=== PATIENT | female | born 1955 | race Caucasian/White ===

== ENCOUNTER 2017-11-20 08:55 | Emergency (ER) | payer OTHER ==
[~2017-11-20 08:55] MED LIST: AMOX1TAB61 PO; ASPI-482 PO; CODE5LIQ PO; CYAN10002 IJ; ESOM20CA PO; FLUT16SP2 NS; GUAI600T79 PO; IBUP800T19 PO; LEVO125T PO; SERT100T8 PO; SIMV20TA PO
[2017-11-20] MEDS ORDERED: IV NORMAL SALINE 1,000ML 1,000 ML IV SCH (09:15)
[2017-11-20] MEDS ORDERED: ONDANSETRON PF 4 MG/2 ML VIAL. IV ONE (09:15)
--- NOTE | 2017-11-20 09:20 | PHYS DOC ---
Past History Past Medical History: Anemia, Anxiety, GERD, High Cholesterol, Hypothyroid Past Surgical History: Hysterectomy, Knee Replacement, Tonsillectomy Smoking: Non-smoker Alcohol Use: Occasionally Drug Use: None Adult General Chief Complaint Chief Complaint: FLANK PAIN HPI HPI Patient is a 62 year old female who presents with complaint of left-sided flank pain. Patient states that her pain started intermittently last night. Patient describes the pain as colicky. Patient states that the pain has become more severe this morning currently rates her pain as 10 out of 10. Patient states that she has had history of kidney stones and last had an episode 3 years ago. Patient states that she does not currently follow with the urologist. Patient has had associated nausea and vomiting with her pain. Patient denies any fever or diarrhea. The patient states that her symptoms feel very similar to her previous episode of ureteral colic. Patient has not taken any medications for her symptoms. Review of Systems Review of Systems Constitutional: Denies fever or chills [] Eyes: Denies change in visual acuity, redness, or eye pain [] HENT: Denies nasal congestion or sore throat [] Respiratory: Denies cough or shortness of breath [] Cardiovascular: Denies chest pain or edema[] GI: Nausea, vomiting, left-sided abdominal and flank pain, denies bloody stools or diarrhea [] : Hematuria[] Musculoskeletal: Denies back pain or joint pain [] Integument: Denies rash or skin lesions [] Neurologic: Denies headache, focal weakness or sensory changes [] All other systems were reviewed and found to be within normal limits, except as documented in this note. Allergies Allergies Allergies Coded Allergies Type Severity Reaction Last Updated Verified acetaminophen Allergy 11/01/13 Yes propoxyphene napsylate Allergy 11/01/13 Yes Physical Exam Physical Exam Constitutional: Alert, afebrile, appears in severe discomfort. [] HENT: Normocephalic, atraumatic, bilateral external ears normal, oropharynx moist, no oral exudates, nose normal. [] Eyes: PERRLA, EOMI, conjunctiva normal, no discharge. [] Neck: Normal range of motion, no tenderness, supple, no stridor. [] Cardiovascular:Heart rate regular rhythm, no murmur [] Lungs & Thorax: Bilateral breath sounds clear to auscultation [] Abdomen: Bowel sounds normal, soft, no tenderness, no masses, no pulsatile masses. [] Skin: Warm, dry, no erythema, no rash. [] Back: No tenderness, no CVA tenderness. [] Extremities: No tenderness, no cyanosis, no clubbing, ROM intact, no edema. [] Neurologic: Alert and oriented X 3, normal motor function, normal sensory function, no focal deficits noted. [] Current Patient Data Vital Signs Vital Signs Date Time Temp Pulse Resp B/P (MAP) Pulse Ox O2 Delivery O2 Flow Rate FiO2 11/20/17 09:05 98.4 62 18 96 Room Air Lab Results Laboratory Tests Test 11/20/17 09:15 White Blood Count 8.3 x10^3/uL Red Blood Count 3.75 x10^6/uL Hemoglobin 13.0 g/dL Hematocrit 37.9 % Mean Corpuscular Volume 101 fL Mean Corpuscular Hemoglobin 35 pg Mean Corpuscular Hemoglobin Concent 34 g/dL Red Cell Distribution Width 14.6 % Platelet Count 532 x10^3/uL Neutrophils (%) (Auto) 19 % Lymphocytes (%) (Auto) 72 % Monocytes (%) (Auto) 8 % Eosinophils (%) (Auto) 1 % Basophils (%) (Auto) 1 % Neutrophils # (Auto) 1.6 x10^3uL Lymphocytes # (Auto) 5.9 x10^3/uL Monocytes # (Auto) 0.7 x10^3/uL Eosinophils # (Auto) 0.1 x10^3/uL Basophils # (Auto) 0.0 x10^3/uL Segmented Neutrophils % 15 % Band Neutrophils % 1 % Lymphocytes % 79 % Atypical Lymphocytes % (Manual) 2 % Monocytes % 3 % Eosinophils % 0 % Basophils % 0 % Platelet Estimate Increased Platelet Clumps, EDTA Present Sodium Level 143 mmol/L Potassium Level 3.8 mmol/L Chloride Level 103 mmol/L Carbon Dioxide Level 30 mmol/L Anion Gap 10 Blood Urea Nitrogen 15 mg/dL Creatinine 1.0 mg/dL Estimated GFR (Cockcroft-Gault) 56.0 BUN/Creatinine Ratio 15 Glucose Level 116 mg/dL Calcium Level 9.2 mg/dL Total Bilirubin 0.4 mg/dL Aspartate Amino Transf (AST/SGOT) 33 U/L Alanine Aminotransferase (ALT/SGPT) 58 U/L Alkaline Phosphatase 116 U/L Total Protein 7.4 g/dL Albumin 3.8 g/dL Albumin/Globulin Ratio 1.1 Lipase 169 U/L Current Medications Medications (Trade) Dose Ordered Sig/Ngoc Route PRN Reason Start Time Stop Time Status Last Admin Dose Admin Morphine Sulfate (Morphine 4mg Syringe) 4 mg PRN Q15MIN PRN IV/SQ PAIN GREATER THAN 3/10 11/20/17 09:15 11/21/17 09:14 11/20/17 10:04 Sodium Chloride 1,000 ml @ 1,000 mls/hr Q1H IV 11/20/17 09:15 11/20/17 10:14 DC 11/20/17 09:26 Ondansetron HCl (Zofran) 4 mg 1X ONCE IV 11/20/17 09:15 11/20/17 09:44 DC 11/20/17 09:27 Ketorolac Tromethamine (Toradol) 30 mg 1X ONCE IV 11/20/17 10:30 11/20/17 10:31 DC 11/20/17 10:06 Ketorolac Tromethamine (Toradol) 30 mg STK-MED ONCE .ROUTE 11/20/17 10:02 11/20/17 10:03 DC EKG EKG Not performed[] Radiology/Procedures Radiology/[place] [address] IMAGING REPORT Signed PATIENT: NAT GARDNER ACCOUNT: [id number] : 1955 LOCATION: ER AGE: 62 SEX: F EXAM STATUS: REG ER ORD. PHYSICIAN: JOSE MIGUEL ELDER MD REASON: left-sided flank pain, history of kidney stones PROCEDURE: CT ABDOMEN PELVIS WO CONTRAST Indication: Left-sided flank pain. History of kidney stones. Technique: CT abdomen and pelvis without IV contrast with multiplanar reformats. Comparison: Previous study from 10/14/2009 Findings: Limited study due to lack of IV contrast. Heart is normal in size. No pericardial or pleural effusion. Clear lung bases. Noncontrast appearance of the liver, spleen, gallbladder, pancreas, adrenals is within normal limits. Punctate nonobstructing stone in the right kidney. Stable mild left hydroureteronephrosis without obstructing radiopaque stone. No perinephric fluid collection. The appearance of the left kidney is relatively stable compared to previous study from 2009. No retroperitoneal, pelvic or inguinal adenopathy. No bowel obstruction. Bladder show no radiopaque stones. Uterus is not visualized likely surgically absent. No solid adnexal lesions. No suspicious bony lesions. Impression: Limited study due to lack of IV contrast. Punctate nonobstructing right renal stone. Stable mild left hydroureteronephrosis when compared to previous CT from 2009. PQRS Compliance Statement: One or more of the following individualized dose reduction techniques were utilized for this examination: 1. Automated exposure control 2. Adjustment of the mA and/or kV according to patient size 3. Use of iterative reconstruction technique DICTATED AND SIGNED BY: RITA LIMON DO DATE: 11/20/17 0956 CC: JOSE MIGUEL ELDER MD; TERRENCE RIVERA MD ~ [] Course & Med Decision Making Course & Med Decision Making Pertinent Labs and Imaging studies reviewed. (See chart for details) Patient was given IV fluids, Zofran, morphine, and Toradol. On reevaluation, patient's pain has improved. The patient's CT scan showed no evidence of an acute ureteral stone. The patient's urinalysis did show signs of hematuria, leukocytosis, and presence of bacteria, and leukoesterase. Patient's symptoms may be in part secondary to urinary tract infection though passing of a recent ureteral stone remains in the differential at this time. The patient will be discharged with prescriptions for Cipro, ibuprofen, Pyridium, and tramadol. Patient was started on tramadol and Pyridium in the emergency department. Patient referred to Dr. Farah of urology for follow-up in the next week if symptoms do not improve. Advised return to emergency department for any worsening symptoms. Patient voiced understanding and in agreement with treatment plan. Dragon Disclaimer Dragon Disclaimer This electronic medical record was generated, in whole or in part, using a voice recognition dictation system. Departure Departure: Impression: Primary Impression: Flank pain Additional Impression: Urinary tract infection Disposition: ADMITTED INPATIENT Condition: IMPROVED Referrals: TERRENCE RIVERA MD (PCP) Patient Instructions: Flank Pain, Urinary Tract Infection Additional Instructions: Follow up with Dr. Keily Farah of [facility] in 1 week for further evaluation if you have persistent symptoms. There is a local office in [place], [place] at [address] [place] [address], [address]. There number is to schedule an appointment. Return to the emergency department for any worsening symptoms. Scripts Tramadol Hcl (TRAMADOL HCL) 50 Mg Tablet 50 MG PO Q6HRS Y for PAIN, #20 TAB Prov: JOSE MIGUEL ELDER MD 11/20/17 Ibuprofen (IBUPROFEN) 600 Mg Tablet 600 MG PO Q6-8HRS Y for PAIN, #30 TAB Prov: JOSE MIGUEL ELDER MD 11/20/17 Ciprofloxacin Hcl (CIPRO) 500 Mg Tablet 1 TAB PO BID, #14 TAB Prov: JOSE MIGUEL ELDER MD 11/20/17 Phenazopyridine Hcl (PYRIDIUM) 200 Mg Tablet 200 MG PO TID for 2 Days, #6 TAB Prov: JOSE MIGUEL ELDER MD 11/20/17 Problem Qualifiers Additional Impression: Urinary tract infection Urinary tract infection type: site unspecified Hematuria presence: with hematuria Qualified Codes: N39.0 - Urinary tract infection, site not specified ; R31.9 - Hematuria, unspecified JOSE MIGUEL ELDER MD Nov 20, 2017 09:20
[2017-11-20] MEDS: MORPHINE SULFATE 4 MG/ML DISP.SYRIN. IV/SQ PRN ×3 (09:27→10:04)
[2017-11-20 09:38] LABS: BASO % 1 % (0-3); EOS # 0.1 x10^3/uL (0.0-0.7); EOS % 1 % (0-3); HEMATOCRIT 37.9 % (36.0-47.0); LYMPH # 5.9 x10^3/uL (1.0-4.8); LYMPH % 72 % (24-48); MEAN CORPUSCULAR HEMOGLOBIN 35 pg (25-35); MEAN CORPUSCULAR HGB CONC 34 g/dL (31-37); MEAN CORPUSCULAR VOLUME 101 fL (79-100); MONO # 0.7 x10^3/uL (0.0-1.1); MONO % 8 % (0-9); NEUT # 1.6 x10^3uL (1.8-7.7); NEUT % 19 % (31-73); PLATELET COUNT 532 x10^3/uL (140-400); RED BLOOD COUNT 3.75 x10^6/uL (3.50-5.40); RED CELL DISTRIBUTION WIDTH 14.6 % (11.5-14.5); WHITE BLOOD COUNT 8.3 x10^3/uL (4.0-11.0)
[2017-11-20 09:58] LABS: ALBUMIN 3.8 g/dL (3.4-5.0); ALBUMIN/GLOBULIN RATIO 1.1 (1.0-1.7); CALCIUM 9.2 mg/dL (8.5-10.1); POTASSIUM 3.8 mmol/L (3.5-5.1); TOTAL BILIRUBIN 0.4 mg/dL (0.2-1.0); TOTAL PROTEIN 7.4 g/dL (6.4-8.2)
[2017-11-20] MEDS ORDERED: KETOROLAC 30 MG/ML VIAL. ONE (10:02)
--- NOTE | 2017-11-20 10:03 | RAD ---
Indication: Left-sided flank pain. History of kidney stones. Technique: CT abdomen and pelvis without IV contrast with multiplanar reformats. Comparison: Previous study from 10/14/2009 Findings: Limited study due to lack of IV contrast. Heart is normal in size. No pericardial or pleural effusion. Clear lung bases. Noncontrast appearance of the liver, spleen, gallbladder, pancreas, adrenals is within normal limits. Punctate nonobstructing stone in the right kidney. Stable mild left hydroureteronephrosis without obstructing radiopaque stone. No perinephric fluid collection. The appearance of the left kidney is relatively stable compared to previous study from 2008. No retroperitoneal, pelvic or inguinal adenopathy. No bowel obstruction. Bladder show no radiopaque stones. Uterus is not visualized likely surgically absent. No solid adnexal lesions. No suspicious bony lesions. Impression: Limited study due to lack of IV contrast. Punctate nonobstructing right renal stone. Stable mild left hydroureteronephrosis when compared to previous CT from 2008. PQRS Compliance Statement: One or more of the following individualized dose reduction techniques were utilized for this examination: 1. Automated exposure control 2. Adjustment of the mA and/or kV according to patient size 3. Use of iterative reconstruction technique
[2017-11-20 10:21] LABS: % SEGS 15 % (35-66)
[2017-11-20 10:22] LABS: % ATYL 2 % (0-0); % BANDS 1 % (0-9); % BASOS 0 % (0-3); % EOS 0 % (0-5); % LYMPHS 79 % (24-48); % MONOS 3 % (0-10); PLATELET CLUMP PRESENT; PLT ESTIMATE INCREASED (ADEQUATE)
[2017-11-20] MEDS ORDERED: KETOROLAC 30 MG/ML VIAL. IV ONE (10:30)
[2017-11-20] MEDS ORDERED: PHEN-318 PO (10:51)
[2017-11-20] MEDS ORDERED: CIPR500T94 PO (10:51)
[2017-11-20] MEDS ORDERED: TRAM50TA PO (10:51)
[2017-11-20] MEDS ORDERED: IBUP600T16 PO (10:51)
[2017-11-20 11:10] LABS: BILIRUBIN,URINE NEG (NEG); CLARITY,URINE HAZY; COLOR,URINE AMBER; GLUCOSE,URINE NEG (NEG); NITRITE,URINE NEG (NEG); RBC,URINE 20-40 /HPF (0-2); UROBILINOGEN,URINE 0.2 mg/dL (0.2 mg/dL)
[2017-11-20 11:11] LABS: AMORPHOUS SEDIMENT,UR PRESENT /HPF; BACTERIA,URINE FEW /HPF (0-FEW); SQUAMOUS EPITHELIAL CELL,UR OCC /LPF
[2017-11-20 11:30] VITALS: BP 132/70
[2017-11-20] MEDS ORDERED: PHENAZOPYRIDINE 200 MG TABLET. PO ONE (12:00)
[2017-11-20] MEDS ORDERED: traMADol 50 MG TABLET PO ONE (12:00)
== END 2017-11-20 11:40 | disposition other institution (70) ==
LOC: ER 08:55
DX: N39.0 Urinary tract infection, site not specified (principal); R31.9 Hematuria, unspecified; E03.9 Hypothyroidism, unspecified; E78.00 Pure hypercholesterolemia, unspecified; K21.9 Gastro-esophageal reflux disease without esophagitis; F41.9 Anxiety disorder, unspecified; Z87.442 Personal history of urinary calculi; Z88.6 Allergy status to analgesic agent; Z88.8 Allergy status to other drugs, medicaments and biological substances
CPT/HCPCS: 36415; 74176; 80053; 81001; 83690; 85007; 85025; 87086; 96361; 96374; 96375; 99285; J1885; J2270; J2405; J7030

== ENCOUNTER 2018-08-07 21:51 | Emergency (ER) | payer OTHER ==
[~2018-08-07] VITALS: Ht 170.2 cm; Wt 93.0 kg
[~2018-08-07 21:51] MED LIST changes: +CIPR500T94 PO; +IBUP600T16 PO; +PHEN-318 PO; +TRAM50TA PO
[2018-08-07 21:59] VITALS: BP 137/60
[2018-08-07] MEDS ORDERED: CEPHALEXIN 250 MG CAPSULE PO ONE (22:15)
[2018-08-07] MEDS ORDERED: CEPH-264 PO (22:20)
--- NOTE | 2018-08-07 22:21 | PHYS DOC ---
Past History Past Medical History: Anemia, Anxiety, GERD, High Cholesterol, Hypothyroid, Kidney Stones, Other Past Surgical History: Hysterectomy, Knee Replacement, Tonsillectomy Smoking: Non-smoker Alcohol Use: None Drug Use: None Adult General Chief Complaint Chief Complaint: INSECT BITE HPI HPI Patient is a 62 year old female who presents with complaint of redness and swelling to the right elbow. Patient states that she first noticed itching to the right elbow 2 days ago. Patient states that over the last 24 hours she has had increasing swelling, redness, and pain to her right elbow. Patient also has noticed increased warmth from the area. Patient was concerned that she may have a spider bite and came to the emergency department for evaluation. Patient has not been taking medications for symptoms. Denies loss of range of motion in the right elbow, fever, or lymphangitic streaking. Patient is not sure what type of insect may have caused the initial bite to occur. Review of Systems Review of Systems Constitutional: Denies fever or chills [] Eyes: Denies change in visual acuity, redness, or eye pain [] HENT: Denies nasal congestion or sore throat [] Respiratory: Denies cough or shortness of breath [] Cardiovascular: Denies chest pain or edema[] GI: Denies abdominal pain, nausea, vomiting, bloody stools or diarrhea [] : Denies dysuria or hematuria [] Musculoskeletal: Redness and swelling to right elbow[] Integument: Denies rash or skin lesions [] Neurologic: Denies headache, focal weakness or sensory changes [] All other systems were reviewed and found to be within normal limits, except as documented in this note. Allergies Allergies Allergies Coded Allergies Type Severity Reaction Last Updated Verified acetaminophen Allergy 11/01/13 Yes propoxyphene napsylate Allergy 11/01/13 Yes Physical Exam Physical Exam Constitutional: Well developed, well nourished, no acute distress, non-toxic appearance. [] HENT: Normocephalic, atraumatic, bilateral external ears normal, oropharynx moist, no oral exudates, nose normal. [] Eyes: PERRLA, EOMI, conjunctiva normal, no discharge. [] Neck: Normal range of motion, no tenderness, supple, no stridor. [] Cardiovascular:Heart rate regular rhythm, no murmur [] Lungs & Thorax: Bilateral breath sounds clear to auscultation [] Abdomen: Bowel sounds normal, soft, no tenderness, no masses, no pulsatile masses. [] Skin: Warm, dry, erythema over right elbow has further characterized in extremities exam. [] Back: No tenderness, no CVA tenderness. [] Extremities: Warmth, erythema, induration, and tenderness palpation overlying right olecranon in the vicinity of olecranon bursa, no fluctuance, no lymphangitic streaking, no cyanosis, no clubbing, ROM intact, no edema. [] Neurologic: Alert and oriented X 3, normal motor function, normal sensory function, no focal deficits noted. [] Current Patient Data Vital Signs Vital Signs Date Time Temp Pulse Resp B/P (MAP) Pulse Ox O2 Delivery O2 Flow Rate FiO2 08/07/18 21:59 98.6 66 18 96 Room Air Lab Results Not performed EKG EKG Not performed[] Radiology/Procedures Radiology/Procedures Not performed[] Course & Med Decision Making Course & Med Decision Making Pertinent Labs and Imaging studies reviewed. (See chart for details) The patient's clinical exam appears consistent with early cellulitis of the right elbow that does not appear to be intra-articular at this time. Patient started on oral Keflex. Will continue on seven-day course of Keflex for outpatient treatment. Advised follow-up with primary doctor in the next 3 days for reevaluation and return to emergency department for any worsening symptoms. Patient was understanding and in agreement with treatment plan. Dragon Disclaimer Dragon Disclaimer This electronic medical record was generated, in whole or in part, using a voice recognition dictation system. Departure Departure: Impression: Primary Impression: Cellulitis Disposition: 01 HOME, SELF-CARE Condition: STABLE Referrals: PHOENIX MERCEDES (PCP) Patient Instructions: Cellulitis Additional Instructions: Follow-up with your primary doctor in the next 3 days for reevaluation. Return to emergency department for any worsening symptoms. Scripts Cephalexin (KEFLEX) 500 Mg Capsule 1 CAP PO QID, #28 CAP Prov: JOSE MIGUEL ELDER MD 08/07/18 Problem Qualifiers Primary Impression: Cellulitis Site of cellulitis: extremity Site of cellulitis of extremity: upper extremity Laterality: right Qualified Codes: L03.113 - Cellulitis of right upper limb JOSE MIGUEL ELDER MD Aug 07, 2018 22:20
[2018-08-08] MEDS ORDERED: POTA10TA10 PO (17:56)
[2018-08-08] MEDS ORDERED: CALC-157 PO (17:56)
[2018-08-08] MEDS ORDERED: MAGN250T2 PO (17:56)
[2018-08-08] MEDS ORDERED: CHOL2000 PO (17:56)
== END 2018-08-07 22:40 | disposition home or self-care (01) ==
LOC: ER 21:51
DX: L03.113 Cellulitis of right upper limb (principal); F41.9 Anxiety disorder, unspecified; K21.9 Gastro-esophageal reflux disease without esophagitis; E78.00 Pure hypercholesterolemia, unspecified; E03.9 Hypothyroidism, unspecified; Z87.442 Personal history of urinary calculi; Z86.2 Personal history of diseases of the blood and blood-forming organs and certain disorders involving the immune mechanism; Z88.6 Allergy status to analgesic agent; Z88.8 Allergy status to other drugs, medicaments and biological substances
CPT/HCPCS: 99283

== ENCOUNTER 2018-08-08 14:13 | Inpatient (IN) | payer OTHER ==
[~2018-08-08] VITALS: Ht 170.2 cm; Wt 97.3 kg
[~2018-08-08 14:13] MED LIST changes: +CEPH-264 PO
[2018-08-08] MEDS ORDERED: IV NORMAL SALINE 1,000ML 1,000 ML IV ONE (14:45)
--- NOTE | 2018-08-08 14:51 | PHYS DOC ---
Past History Past Medical History: Anemia, Anxiety, GERD, High Cholesterol, Hypothyroid, Kidney Stones, Other Past Surgical History: Hysterectomy, Knee Replacement, Tonsillectomy Smoking: Non-smoker Alcohol Use: None Drug Use: None Adult General Chief Complaint Chief Complaint: INSECT BITE [facility] 62-year-old female presents the emergency department with right upper extremity cellulitis that is failing outpatient therapy. She was started on Keflex and has had 3 doses and her pain and redness has continued to worsen. She was sent from her primary care doctor's office. Review of Systems Review of Systems Eyes: Denies change in visual acuity, redness, or eye pain HENT: Denies nasal congestion or sore throat Respiratory: Denies cough or shortness of breath Cardiovascular: No additional information not addressed in HPI GI: Denies abdominal pain, nausea, vomiting, bloody stools or diarrhea : Denies dysuria or hematuria Neurologic: Denies headache, focal weakness or sensory changes Endocrine: Denies polyuria or polydipsia All other systems were reviewed and found to be within normal limits, except as documented in this note Family History Family History noncontributory Allergies Allergies Allergies Coded Allergies Type Severity Reaction Last Updated Verified acetaminophen Allergy Unknown 08/07/18 Yes propoxyphene napsylate Allergy Unknown 08/07/18 Yes Physical Exam Physical Exam GENERAL: Awake, alert, well appearing, nontoxic HEAD/NECK/EYES: Normocephalic, Neck supple, PERRL ENT Airway patent, mucous membranes moist RESP: Nontachypneic, no respiratory distress, normal breath sounds bilaterally CV: Regular rhythm, normal perfusion ABD/GI: Soft, non-tender, no guarding, no rebound, no palpable pulsatile mass BACK: Inspection NL EXT: Right upper extremity cellulitis from the mid forearm to the mid upper arm with a prominent elbow bursa SKIN: Warm, dry NEURO: Oriented X3, normal speech, no motor deficits, no sensory deficits, CN II - XII intact PSYCH: Cooperative, appropriate affect Current Patient Data Vital Signs reviewed Lab Results Laboratory Tests Test 08/08/18 14:46 White Blood Count 10.9 x10^3/uL Red Blood Count 3.61 x10^6/uL Hemoglobin 12.5 g/dL Hematocrit 36.1 % Mean Corpuscular Volume 100 fL Mean Corpuscular Hemoglobin 35 pg Mean Corpuscular Hemoglobin Concent 35 g/dL Red Cell Distribution Width 14.0 % Platelet Count 421 x10^3/uL Neutrophils (%) (Auto) 49 % Lymphocytes (%) (Auto) 41 % Monocytes (%) (Auto) 9 % Eosinophils (%) (Auto) 0 % Basophils (%) (Auto) 1 % Neutrophils # (Auto) 5.3 x10^3uL Lymphocytes # (Auto) 4.5 x10^3/uL Monocytes # (Auto) 1.0 x10^3/uL Eosinophils # (Auto) 0.0 x10^3/uL Basophils # (Auto) 0.1 x10^3/uL Sodium Level 137 mmol/L Potassium Level 3.7 mmol/L Chloride Level 103 mmol/L Carbon Dioxide Level 28 mmol/L Anion Gap 6 Blood Urea Nitrogen 17 mg/dL Creatinine 0.7 mg/dL Estimated GFR (Cockcroft-Gault) 84.5 BUN/Creatinine Ratio 24 Glucose Level 85 mg/dL Lactic Acid Level 1.1 mmol/L Calcium Level 9.3 mg/dL Total Bilirubin 0.6 mg/dL Aspartate Amino Transf (AST/SGOT) 31 U/L Alanine Aminotransferase (ALT/SGPT) 44 U/L Alkaline Phosphatase 123 U/L Total Protein 7.1 g/dL Albumin 3.6 g/dL Albumin/Globulin Ratio 1.0 Current Medications Medications (Trade) Dose Ordered Sig/Ngoc Route PRN Reason Start Time Stop Time Status Last Admin Dose Admin Sodium Chloride 1,000 ml @ 1,000 mls/hr 1X ONCE IV 08/08/18 14:45 08/08/18 15:45 DC 08/08/18 14:55 Vancomycin HCl 1.5 gm/Sodium Chloride 500 ml @ 250 mls/hr 1X ONCE IV 08/08/18 15:20 08/08/18 17:19 08/08/18 15:45 Ondansetron HCl (Zofran) 4 mg PRN Q4HRS PRN IV NAUSEA/VOMITING 08/08/18 15:45 08/09/18 15:44 Morphine Sulfate (Morphine 2mg Syringe) 2 mg PRN Q2HR PRN IV PAIN 08/08/18 16:00 08/09/18 15:59 EKG EKG [] Radiology/Procedures Radiology/Procedures [] Impressions: Right upper extremity cellulitis Failure of outpatient therapy Plan: Admission. Case d/w Dr. Mccullough who will see the patient on the floor Course & Med Decision Making Course & Med Decision Making Pertinent Labs and Imaging studies reviewed. (See chart for details) [] Dragon Disclaimer Dragon Disclaimer This electronic medical record was generated, in whole or in part, using a voice recognition dictation system. Departure Departure: Referrals: PHOENIX MERCEDES (PCP) MARY KATE MORALEZ DO Aug 08, 2018 14:51
[2018-08-08 15:19] LABS: BASO # 0.1 x10^3/uL (0.0-0.2); BASO % 1 % (0-3); EOS % 0 % (0-3); HEMATOCRIT 36.1 % (36.0-47.0); HEMOGLOBIN 12.5 g/dL (12.0-15.5); LYMPH # 4.5 x10^3/uL (1.0-4.8); LYMPH % 41 % (24-48); MEAN CORPUSCULAR HEMOGLOBIN 35 pg (25-35); MEAN CORPUSCULAR HGB CONC 35 g/dL (31-37); MEAN CORPUSCULAR VOLUME 100 fL (79-100); MONO % 9 % (0-9); NEUT # 5.3 x10^3uL (1.8-7.7); NEUT % 49 % (31-73); PLATELET COUNT 421 x10^3/uL (140-400); RED BLOOD COUNT 3.61 x10^6/uL (3.50-5.40); WHITE BLOOD COUNT 10.9 x10^3/uL (4.0-11.0)
[2018-08-08] MEDS ORDERED: VANCOMYCIN 1.5 GM in IV NORMAL SALINE 500ML 500 ML IV ONE (15:20)
[2018-08-08 15:34] LABS: ALBUMIN 3.6 g/dL (3.4-5.0); CALCIUM 9.3 mg/dL (8.5-10.1); CREATININE 0.7 mg/dL (0.6-1.0); GFR 84.5; POTASSIUM 3.7 mmol/L (3.5-5.1); TOTAL BILIRUBIN 0.6 mg/dL (0.2-1.0); TOTAL PROTEIN 7.1 g/dL (6.4-8.2)
[2018-08-08] MEDS ORDERED: ONDANSETRON PF 4 MG/2 ML VIAL. IV PRN (15:45)
--- NOTE | 2018-08-08 15:53 | RAD ---
Examination: Ultrasound right approximately HISTORY: History of cellulitis, bursitis or abscess COMPARISON: None available Findings/ impression: In the region of the soft tissue of the elbow, there is a complex fluid collection measuring 2.7 x 2.4 x 0.2 cm could be inflamed//infected bursitis or abscess. There is diffuse soft tissue edema identified in the posterior upper arm and posterior forearm region probably cellulitis or soft tissue infection. Electronically signed by: Alex Garcia MD (08/08/2018 3:49 PM) [id number]
[2018-08-08] MEDS ORDERED: MORPHINE SULFATE 2 MG/ML DISP.SYRIN. IV PRN (16:00)
[2018-08-08] MEDS ORDERED: MAGN250T2 PO (17:56)
[2018-08-08] MEDS ORDERED: POTA10TA10 PO (17:56)
[2018-08-08] MEDS ORDERED: CALC-157 PO (17:56)
[2018-08-08] MEDS ORDERED: CHOL2000 PO (17:56)
[2018-08-08 18:06] VITALS: BP 110/60
[2018-08-08] MEDS: VANCOMYCIN PER PHARMACY MC PRN ×2 (18:30→18:40)
[2018-08-08] MEDS: LACTOBACILLUS RHAMNOSUS GG 1 CAPSULE. PO SCH (19:42)
[2018-08-08] MEDS: SIMVASTATIN 10 MG TABLET PO SCH (19:43)
[2018-08-08] MEDS: IBUPROFEN 600 MG TABLET. PO PRN (19:43)
[2018-08-08] MEDS ORDERED: VANCOMYCIN 2 GM in IV NORMAL SALINE 500ML 500 ML IV ONE (20:00)
[2018-08-08 22:55] VITALS: BP 102/56
[2018-08-09] MEDS: VANCOMYCIN 1.5 GM in IV NORMAL SALINE 500ML 500 ML IV SCH ×2 (04:08→16:23)
[2018-08-09 05:06] VITALS: BP 105/68
[2018-08-09] MEDS: IBUPROFEN 600 MG TABLET. PO PRN ×2 (06:25→14:33)
[2018-08-09] MEDS: LEVOTHYROXINE 137 MCG TABLET PO SCH (06:25)
[2018-08-09] MEDS: ASPIRIN ENTERIC COATED 81 MG TABLET.DR. PO SCH (08:24)
[2018-08-09] MEDS: SERTRALINE 100 MG TABLET. PO SCH (08:24)
[2018-08-09] MEDS: CALCIUM CARB/VIT D3 500/200 TABLET PO SCH (08:24)
[2018-08-09] MEDS: CHOLECALCIFEROL (VITAMIN D3) 1,000 UNIT TABLET PO SCH (08:24)
[2018-08-09] MEDS: POTASSIUM CHLORIDE 10 MEQ TABLET.ER. PO SCH ×3 (08:25→16:25)
[2018-08-09] MEDS: MAGNESIUM OXIDE 400 MG TABLET PO SCH (08:25)
[2018-08-09] MEDS: LACTOBACILLUS RHAMNOSUS GG 1 CAPSULE. PO SCH ×2 (08:25→21:05)
[2018-08-09 11:00] VITALS: BP 117/78
--- NOTE | 2018-08-09 14:09 | HP ---
ADMIT DATE: 08/09/2018 HISTORY OF PRESENT ILLNESS: The patient is a 62-year-old female patient, who apparently was seen in the Emergency Room on 08/07/2018, was diagnosed with cellulitis of right elbow and forearm and was treated as an outpatient and discharged back home on Keflex, but the redness and swelling has increased and she was seen by her primary care physician, who recommended that she should come back to the Emergency Room as the oral antibiotic are not effective. She was evaluated yesterday in the Emergency Room and was diagnosed with cellulitis of her right upper extremity with failure of outpatient oral antibiotic. Apparently, they did ultrasound, which showed in the region of the soft tissue of the elbow there is a complex fluid collection measuring 2.7 x 2.4 x 0.2 cm, could be inflamed, infected, bursitis or abscess. There is diffuse soft tissue edema identified in the posterior upper arm and posterior forearm region probably cellulitis or soft tissue infection. She was started on IV vancomycin as per pharmacy recommendation was continued on all her other medications. When I examined her, she does have some discomfort and pain when she thought leans on it, but otherwise is not painful. She denied any chills, rigors, or fever. PAST MEDICAL HISTORY: Significant for hyperlipidemia, hypothyroidism, nephrolithiasis, and osteoarthritis. PAST SURGICAL HISTORY: Significant for partial knee replacement, right knee replacement, total abdominal hysterectomy, bilateral salpingo-oophorectomy, multiple breast biopsies, tonsillectomy, appendectomy, and colonoscopy. She also has wisdom tooth extraction. ALLERGIES: She is allergic to TYLENOL and DARVOCET. MEDICATIONS: She is currently on following medications: She is on simvastatin 20 mg at bedtime, aspirin 81 mg once a day, sertraline 100 mg daily, calcium carbonate with vitamin D3 one tablet daily, magnesium oxide 400 mg once a day, potassium chloride 10 mEq 3 times a day, levothyroxine sodium 137 mcg daily and cholecalciferol for vitamin D3 2000 international units once a day. FAMILY HISTORY: Her father is still alive at age of 87, has bilateral total knee arthroplasty, right hip arthroplasty, permanent pacemaker placement, aortic valve replacement and cataract extraction. Her mother is still alive at the age of 87. She has neuropathy, carpal tunnel syndrome and Dupuytren's contractures. SOCIAL HISTORY: She is , has 1 daughter, who is diabetic and hypothyroid. She does not smoke. Drinks alcohol occasionally. She is a retired teacher. REVIEW OF SYSTEMS: The patient denied any blurring of vision, cataract, glaucoma or macular degeneration. Denied any earache, tinnitus or sensorineural deafness. Denied any nosebleeds, stuffy nose or postnasal drip. Denied any sore throat, sore tongue, toothache, hoarseness of voice or difficulty swallowing. Denied any nausea, vomiting, diarrhea or constipation. Denied any hematemesis, melena or hematochezia. Denied any dysuria, frequency or hematuria. Denied any chest pain, shortness of breath, orthopnea, paroxysmal nocturnal dyspnea. Denied any cough, phlegm or hemoptysis. Denied any chills, rigors or fever. PHYSICAL EXAMINATION: GENERAL: On arrival to the Emergency Room, she looked well and was clearly in no apparent respiratory distress, pale, but no jaundice, cyanosis, or thyromegaly. No jugular venous distention. No limb edema. VITAL SIGNS: Her heart rate was 62. Her blood pressure was 131/71, temperature was 98.7, respiratory rate was 18 and oxygen saturation was 100% on room air. HEAD, EYES, EARS, NOSE AND THROAT: Showed normocephalic, atraumatic. NECK: Supple. HEART: Showed normal first and second heart sounds with no gallop, rub or murmur. CHEST: Clear to auscultation. No crepitation or rhonchi. ABDOMEN: Distended, soft, nontender. No guarding or rigidity. No organomegaly. All hernial orifice intact. Bowel sounds normal. NEUROLOGIC: She is awake, alert, responding appropriately. All cranial nerves intact. EXTREMITIES: She moves extremities without difficulty. She ambulates without assistance or assistive devices. Examination of right elbow compared to the left showed that there is diffuse soft tissue swelling and erythema and also what seems to be right olecranon bursitis, which is tender, red, and was deferred fluctuation. Although, the rest of the elbow on the distal right arm and proximal left forearm is swollen, but no fluctuation. LABORATORY DATA: On admission showed that her serum sodium was 137, potassium 3.7, chloride 103, bicarbonate 28, anion gap of 5, BUN of 17, creatinine 0.7, estimated GFR was 85 mL per minute. Her glucose was 85, lactic acid was 1.1, calcium was 9.3. Total bilirubin, AST, ALT were normal. Alkaline phosphatase was slightly elevated. Total protein was 7.1, albumin was 3.6. Her white cell count was 10,900, hemoglobin 12.5, hematocrit 36, MCV 100, and platelet count of 421,000 with a manual differential showed 49% polymorphs, 41% lymphocytes and 9% monocytes. PLAN: The patient was started on IV vancomycin to be adjusted by the pharmacist. Continue with all her other medications. We will follow her closely and obviously she might require surgical incision of her olecranon bursitis. I am a little bit concerned about the involvement of the right elbow joint and therefore, I will arrange for her to have a CT scan of the right elbow. VIRGILIO MIRZA MD DR: JAYCEE/mak JOB#: [id number] / [id number]
[2018-08-09 14:37] VITALS: BP 142/83
[2018-08-09 19:08] VITALS: BP 120/70
[2018-08-09] MEDS: SIMVASTATIN 10 MG TABLET PO SCH (21:05)
[2018-08-09 22:42] VITALS: BP 111/68
--- NOTE | 2018-08-09 23:59 | PN ---
DATE: 08/09/2018 SUBJECTIVE: The patient is sitting on the edge of the bed comfortably in no apparent distress. She denied any chills, rigors, or fever. She continued to have marked erythema and swelling around her right elbow to the distal right arm and proximal left forearm and there is probably olecranon per cystitis. It is tender to touch, but not painful if she is not tough it or leaning on it. PHYSICAL EXAMINATION: GENERAL: When I examined her, she looked well and was clearly in no apparent respiratory distress. No pallor, jaundice, cyanosis, or thyromegaly. No jugular venous distention. No limb edema. VITAL SIGNS: Her heart rate was 59, blood pressure was 129/68, temperature was 98.7, respiratory rate was 16, and oxygen saturation was 97%. HEAD, EYES, EARS, NOSE AND THROAT: Showed normocephalic, atraumatic. NECK: Supple. HEART: Showed normal first and second heart sounds with no gallop, rub, or murmur. CHEST: Clear to auscultation. No crepitation or rhonchi. ABDOMEN: Distended, soft, nontender. NEUROLOGIC: She is awake, alert, responding appropriately. All cranial nerves intact. She moves extremities without difficulty. Examination of the right upper extremity compared to the left continued to show that she has diffuse erythema and soft tissue swelling and possible olecranon bursitis. LABORATORY DATA: Her ultrasound showed that in the region of the soft tissue of the elbow, there is a complex fluid collection measuring 2.7 x 2.4 x 0.2 cm. It could be inflamed infected bursitis and abscess. There is diffuse soft tissue edema identified in the posterior upper arm and posterior forearm region probably cellulitis or soft tissue infection. PLAN: To continue with IV vancomycin. Continue with pain management in the form of ibuprofen and oxycodone. Continue with all her other medications. Repeat her lab work tomorrow and decide on further management accordingly. The swelling has worsened. We might have to transfer her to [facility] for orthopedic consult as she may require incision and drainage. VIRGILIO MIRZA MD DR: JAYCEE/mak JOB#: [id number] / [id number]
[2018-08-10 03:39] LABS: HEMATOCRIT 30.5 % (36.0-47.0); HEMOGLOBIN 10.5 g/dL (12.0-15.5); RED CELL DISTRIBUTION WIDTH 14.2 % (11.5-14.5); WHITE BLOOD COUNT 7.7 x10^3/uL (4.0-11.0)
[2018-08-10 04:01] LABS: ALBUMIN 2.7 g/dL (3.4-5.0); ALBUMIN/GLOBULIN RATIO 0.9 (1.0-1.7); CALCIUM 8.8 mg/dL (8.5-10.1); CREATININE 0.6 mg/dL (0.6-1.0); POTASSIUM 3.9 mmol/L (3.5-5.1); TOTAL BILIRUBIN 0.4 mg/dL (0.2-1.0); TOTAL PROTEIN 5.7 g/dL (6.4-8.2)
[2018-08-10 04:04] LABS: VANC TR 15.7 mcg/mL (10.0-20.0)
[2018-08-10] MEDS: VANCOMYCIN 1.5 GM in IV NORMAL SALINE 500ML 500 ML IV SCH ×2 (04:16→16:54)
[2018-08-10] MEDS: IBUPROFEN 600 MG TABLET. PO PRN ×3 (04:21→16:53)
[2018-08-10 05:30] VITALS: BP 127/66
[2018-08-10] MEDS: LEVOTHYROXINE 137 MCG TABLET PO SCH (05:56)
[2018-08-10] MEDS: VANCOMYCIN PER PHARMACY MC PRN (07:26)
[2018-08-10] MEDS: ASPIRIN ENTERIC COATED 81 MG TABLET.DR. PO SCH (08:43)
[2018-08-10] MEDS: SERTRALINE 100 MG TABLET. PO SCH (08:43)
[2018-08-10] MEDS: CHOLECALCIFEROL (VITAMIN D3) 1,000 UNIT TABLET PO SCH (08:43)
[2018-08-10] MEDS: MAGNESIUM OXIDE 400 MG TABLET PO SCH (08:43)
[2018-08-10] MEDS: LACTOBACILLUS RHAMNOSUS GG 1 CAPSULE. PO SCH ×2 (08:43→21:02)
[2018-08-10] MEDS: POTASSIUM CHLORIDE 10 MEQ TABLET.ER. PO SCH ×3 (08:44→16:53)
[2018-08-10] MEDS: CALCIUM CARB/VIT D3 500/200 TABLET PO SCH (08:44)
[2018-08-10 11:07] VITALS: BP 115/69
[2018-08-10 15:37] VITALS: BP 111/63
[2018-08-10 15:40] VITALS: BP 111/63
--- NOTE | 2018-08-10 17:56 | PN ---
DATE: 08/10/2018 SUBJECTIVE: The patient is sitting, propped up in bed, in no apparent distress. On questioning her, denied any complaint. She has no fever and there is no pain unless she leans on her right elbow. When I examined her, she looked well and was clearly in no apparent respiratory distress. No pallor, jaundice, cyanosis, or thyromegaly. No jugular venous distension. No lower limb edema. PHYSICAL EXAMINATION: Her heart rate was 86, blood pressure was 115/69, temperature was 98, respiratory rate was 12 and oxygen saturation was 98% on room air. Examination of her right upper extremity showed most of the erythema and soft tissue swelling has largely subsided except around her olecranon bursa. She is still red and tender to touch with some fluctuation. The rest of clinical examination is unremarkable. Her intake over the last 24-hour was 1850, output was 850. LABORATORY DATA: Her lab work this morning showed that her vancomycin trough level was 15.7, which is well within therapeutic range. Her white cell count is down to 7700, hemoglobin 10.5, hematocrit 30, MCV 102, and platelet count of 364,000. Her chemistry showed a serum sodium 144, potassium 3.9, chloride 109, bicarbonate 30, anion gap of 5, BUN 11, creatinine 0.6, and estimated GFR was 101 mL per minute. Her glucose was 93 and calcium was 8.8. Total bilirubin, AST, ALT, and alkaline phosphatase are normal. Her total protein was 5.7 and albumin 2.7. ASSESSMENT: Right upper extremity cellulitis with possible olecranon bursitis. The patient is responding well to antibiotics and all the redness and soft tissue swelling has largely subsided except around the olecranon bursitis. My plan is to continue with IV antibiotics in the form of vancomycin trough level that is within the therapeutic range. Continue with pain management. Repeat her lab work and ultrasound tomorrow and decide on further management accordingly. So far, her blood cultures are negative. VIRGILIO MIRZA MD DR: JAYCEE/mak JOB#: [id number] / [id number]
[2018-08-10] MEDS: SIMVASTATIN 10 MG TABLET PO SCH (21:02)
[2018-08-10] MEDS: oxyCODONE IR 5 MG TABLET PO PRN (21:06)
[2018-08-10 23:18] VITALS: BP 111/68
[2018-08-11] MEDS: VANCOMYCIN 1.5 GM in IV NORMAL SALINE 500ML 500 ML IV SCH ×2 (04:11→16:31)
[2018-08-11 04:25] VITALS: BP 120/73
[2018-08-11] MEDS: LEVOTHYROXINE 137 MCG TABLET PO SCH (06:21)
[2018-08-11 06:45] LABS: HEMATOCRIT 28.6 % (36.0-47.0); HEMOGLOBIN 9.9 g/dL (12.0-15.5); RED BLOOD COUNT 2.84 x10^6/uL (3.50-5.40); RED CELL DISTRIBUTION WIDTH 14.5 % (11.5-14.5); WHITE BLOOD COUNT 5.8 x10^3/uL (4.0-11.0)
[2018-08-11 06:54] LABS: CALCIUM 8.8 mg/dL (8.5-10.1); CREATININE 0.6 mg/dL (0.6-1.0); POTASSIUM 4.4 mmol/L (3.5-5.1)
[2018-08-11] MEDS: CALCIUM CARB/VIT D3 500/200 TABLET PO SCH (08:22)
[2018-08-11] MEDS: SERTRALINE 100 MG TABLET. PO SCH (08:22)
[2018-08-11] MEDS: LACTOBACILLUS RHAMNOSUS GG 1 CAPSULE. PO SCH ×2 (08:22→22:10)
[2018-08-11] MEDS: MAGNESIUM OXIDE 400 MG TABLET PO SCH (08:23)
[2018-08-11] MEDS: CHOLECALCIFEROL (VITAMIN D3) 1,000 UNIT TABLET PO SCH (08:23)
[2018-08-11] MEDS: ASPIRIN ENTERIC COATED 81 MG TABLET.DR. PO SCH (08:23)
[2018-08-11] MEDS: POTASSIUM CHLORIDE 10 MEQ TABLET.ER. PO SCH ×3 (08:23→16:31)
[2018-08-11] MEDS: IBUPROFEN 600 MG TABLET. PO PRN (08:23)
[2018-08-11 10:22] VITALS: BP 108/70
[2018-08-11] MEDS: oxyCODONE IR 5 MG TABLET PO PRN ×2 (10:30→22:11)
[2018-08-11 14:46] VITALS: BP 146/85
[2018-08-11 15:28] LABS: HEMATOCRIT 31.5 % (36.0-47.0); HEMOGLOBIN 11.1 g/dL (12.0-15.5)
[2018-08-11 19:41] VITALS: BP 106/70
[2018-08-11 20:44] LABS: FECAL OB PT NEGATIVE (NEG)
[2018-08-11] MEDS: SIMVASTATIN 10 MG TABLET PO SCH (22:10)
--- NOTE | 2018-08-11 22:25 | PN ---
DATE: 08/11/2018 SUBJECTIVE: The patient is sitting in the edge of the bed, in no apparent respiratory distress; however, she was drenched in sweat. She states that she has this sometimes, although all her vital signs were stable. The redness and swelling of the right upper extremity has largely subsided except around the olecranon bursa. PHYSICAL EXAMINATION: GENERAL: When I examined her, she looked well and was clearly in no apparent respiratory distress. No pallor, jaundice, or cyanosis. No lymphadenopathy, no thyromegaly. No jugular venous distention. No limb edema. VITAL SIGNS: Her heart rate was 83, blood pressure was 108/70, temperature was 98.6, respiratory rate 20, and oxygen saturation was 96%. HEAD, EYES, EARS, NOSE AND THROAT: Normocephalic, atraumatic. NECK: Supple. HEART: Showed normal first and second heart sounds with no gallop, rub, or murmur. CHEST: Clear to auscultation. No crepitation or rhonchi. ABDOMEN: Distended, soft, nontender. No guarding or rigidity. No organomegaly. All hernial orifice intact. Bowel sounds normal. NEUROLOGIC: She was awake, alert, responding appropriately. Cranial nerves intact. She moves extremities without difficulty. She ambulates without assistance or assistive devices. Her intake over the last 24 hours was 1430, output was 1900. LABORATORY DATA: Her lab work this morning showed a white cell count of 5800, hemoglobin 9.9, hematocrit 28.5, MCV 101, and platelet count of 352,000. Her chemistry showed a serum sodium 143, potassium 4.4, chloride 110, bicarbonate 31, anion gap of 2, BUN 9, creatinine was 0.6, estimated GFR was 101, glucose was 81, calcium was 8.8. ASSESSMENT AND PLAN: 1. Right upper extremity cellulitis and olecranon bursitis. 2. Hypothyroidism. 3. Hyperlipidemia. 4. Nephrolithiasis. 5. Osteoarthritis. 6. The patient has drenching sweats with differential diagnosis also including postmenopausal flashing, vasovagal. She has also had blood loss anemia that could be due to ibuprofen, so I discontinued that. We will repeat her H and H this afternoon and do an ultrasound of her right upper extremity. Decide the further management accordingly. VIRGILIO MIRZA MD DR: Bonnie JOB#: [id number] / [id number]
[2018-08-11 22:58] VITALS: BP 138/79
[2018-08-12] MEDS: VANCOMYCIN 1.5 GM in IV NORMAL SALINE 500ML 500 ML IV SCH (04:13)
[2018-08-12] MEDS: oxyCODONE IR 5 MG TABLET PO PRN (04:40)
[2018-08-12 06:03] VITALS: BP 120/74
[2018-08-12 06:25] LABS: BASO % 1 % (0-3); EOS # 0.1 x10^3/uL (0.0-0.7); EOS % 2 % (0-3); HEMATOCRIT 28.1 % (36.0-47.0); HEMOGLOBIN 9.7 g/dL (12.0-15.5); LYMPH # 4.2 x10^3/uL (1.0-4.8); LYMPH % 71 % (24-48); MEAN CORPUSCULAR HEMOGLOBIN 35 pg (25-35); MEAN CORPUSCULAR HGB CONC 35 g/dL (31-37); MEAN CORPUSCULAR VOLUME 102 fL (79-100); MONO # 0.5 x10^3/uL (0.0-1.1); MONO % 8 % (0-9); NEUT # 1.1 x10^3uL (1.8-7.7); NEUT % 19 % (31-73); PLATELET COUNT 367 x10^3/uL (140-400); RED BLOOD COUNT 2.76 x10^6/uL (3.50-5.40); RED CELL DISTRIBUTION WIDTH 14.4 % (11.5-14.5); WHITE BLOOD COUNT 5.9 x10^3/uL (4.0-11.0)
[2018-08-12 06:37] LABS: ALBUMIN 2.5 g/dL (3.4-5.0); ALBUMIN/GLOBULIN RATIO 0.9 (1.0-1.7); CALCIUM 8.6 mg/dL (8.5-10.1); CREATININE 0.7 mg/dL (0.6-1.0); GFR 84.5; POTASSIUM 4.4 mmol/L (3.5-5.1); TOTAL BILIRUBIN 0.3 mg/dL (0.2-1.0); TOTAL PROTEIN 5.4 g/dL (6.4-8.2)
[2018-08-12 06:57] LABS: % BASOS 1 % (0-3); % EOS 2 % (0-5); % LYMPHS 68 % (24-48); % MONOS 7 % (0-10); % SEGS 18 % (35-66); PLT ESTIMATE INCREASED (ADEQUATE)
[2018-08-12 06:58] LABS: PLATELET CLUMP PRESENT
[2018-08-12 06:59] LABS: POLYCHROMASIA PRESENT
[2018-08-12 07:00] LABS: % ATYL 4 % (0-0)
[2018-08-12] MEDS: LEVOTHYROXINE 137 MCG TABLET PO SCH (07:39)
--- NOTE | 2018-08-12 07:55 | RAD ---
Right elbow ultrasound, 08/11/2018: HISTORY: Swelling after bug bite The area of clinical concern in the soft tissues along the anterolateral aspect of the right elbow was scanned. Comparison is made to a study from 08/08/2018. Extensive soft tissue edema seen on the previous study has regressed. Along the anterolateral aspect of the right there is a small complex hypoechoic structure containing septations. It measures approximately 0.7 x 0.8 x 2.4 cm. The appearance is that of complex fluid. Diagnostic considerations include a residual hematoma or complex bursal fluid collection. An abscess cannot be excluded. Clinical surveillance is suggested. MR scanning could be considered for further evaluation, if clinically indicated. Electronically signed by: Oleg Jackson MD (08/12/2018 7:50 AM) [facility]
[2018-08-12] MEDS: CHOLECALCIFEROL (VITAMIN D3) 1,000 UNIT TABLET PO SCH (08:14)
[2018-08-12] MEDS: POTASSIUM CHLORIDE 10 MEQ TABLET.ER. PO SCH ×2 (08:14→11:47)
[2018-08-12] MEDS: CALCIUM CARB/VIT D3 500/200 TABLET PO SCH (08:14)
[2018-08-12] MEDS: LACTOBACILLUS RHAMNOSUS GG 1 CAPSULE. PO SCH (08:15)
[2018-08-12] MEDS: MAGNESIUM OXIDE 400 MG TABLET PO SCH (08:15)
[2018-08-12] MEDS: ASPIRIN ENTERIC COATED 81 MG TABLET.DR. PO SCH (08:15)
[2018-08-12] MEDS: SERTRALINE 100 MG TABLET. PO SCH (08:15)
[2018-08-12 10:35] VITALS: BP 134/83
--- NOTE | 2018-08-12 13:04 | RAD ---
CT HEAD WITHOUT CONTRAST 08/12/2018 11:01 AM Indication: HEADACHE Comparison: None Procedure: Multidetector CT imaging of the head was performed without the administration of contrast. Findings: There is no evidence of acute intracranial hemorrhage. There is no evidence of acute territorial infarction. Please note that CT is limited for evaluation of acute ischemia. No mass effect or midline shift is identified . The ventricles and basilar cisterns have an appropriate appearance. No abnormal extra-axial fluid collections are seen. No acute osseous changes are identified. Impression: No evidence of acute intracranial abnormality CT DOSING PQRS STATEMENT: One or more of the following individualized dose reduction techniques were utilized for this examination: 1. Automated exposure control 2. Adjustment of the mA and/or kV according to patient size 3. Use of iterative reconstruction technique Electronically signed by: Alex Wood MD (08/12/2018 1:00 PM) [id number]
[2018-08-12] MEDS ORDERED: SULF1TAB23 PO (13:52)
--- NOTE | 2018-08-12 23:09 | DS ---
DATE OF DISCHARGE: 08/12/2018 HISTORY OF PRESENT ILLNESS: The patient is a 62-year-old female patient, who was admitted with a right upper extremity cellulitis. She was attempt at treating her as an outpatient with Keflex as an outpatient has failed. The redness and swelling has increased and she was seen by her primary care physician, recommended that the patient should come back to the Emergency Room to go on oral antibiotic. As oral antibiotics were not effective, she was evaluated and was diagnosed with cellulitis of right upper extremity with failure of outpatient oral antibiotic. She did have an ultrasound, which showed that the region of the soft tissue of the elbow and there is some complex fluid collection measuring 2.7 x 2.4 x 0.2 cm, could be inflamed with infected bursitis or abscess. There is diffuse soft tissue edema identified in the posterior upper arm and posterior forearm region, probably cellulitis or soft tissue infection. She was started on IV vancomycin as per pharmacy recommendation. She did actually very well. All the soft tissue swelling and erythema has largely subsided. We did repeat her ultrasound today of the same area and showed that the small complex hypoechoic structure containing septation measures approximately 0.7 x 0.8 x 2.4 cm. The appearance is that of complex fluid, diagnostic and sedation include the residual hematoma or complex bursal fluid collection and abscess cannot be excluded. Unfortunately, the patient has complained also of severe headache that has not really subsided and said that she had similar episode of headache about 10 years ago, treated with a heating pad and ice and sitting in her room for 2 days. Her liver enzymes were noted to be elevated. We did a CT scan of the head without contrast, which showed that there is no evidence of acute intracranial hemorrhage. There is no evidence of acute territorial infarction. The ventricles and basilar cisterns have an appropriate appearance. No abnormal extraaxial fluid collection seen. No acute osseous changes identified. No evidence of acute intracranial abnormality. Given that there is fluid collection that could be an abscess. I actually made an appointment for her to be seen by Dr. Samuel on morning at his office and arrangement for him to have abdominal ultrasound tomorrow as an outpatient and she was instructed to be n.p.o. from midnight tonight. PHYSICAL EXAMINATION: GENERAL: When I saw her this afternoon, she looked well and was clearly in no apparent respiratory distress. No pallor, jaundice, cyanosis, or thyromegaly. No jugular venous distension. No limb edema. VITAL SIGNS: Her heart rate was 56, blood pressure 134/83, temperature was 98.2, respiratory rate 20, and oxygen saturation was 93% on room air. HEAD, EYES, EARS, NOSE AND THROAT: Showed normocephalic, atraumatic. NECK: Supple. HEART: Showed normal first and second heart sounds with no gallop, rub or murmur. CHEST: Clear to auscultation. No crepitation or rhonchi. ABDOMEN: Distended, soft, nontender. No guarding or rigidity. No organomegaly. Her hernial orifice intact. Bowel sounds normal. NEUROLOGIC: She is awake, alert, responding appropriately. Cranial nerves intact. She moves extremities without difficulty. She ambulates without assistance or assistive devices. Her examination of the right upper extremity showed mostly the redness and soft tissue swelling has largely subsided and she is still a small area of probably olecranon bursitis with tenderness and fluctuation. LABORATORY DATA: As of this morning showed a serum sodium 143, potassium 4.4, chloride 110, bicarbonate 32, anion gap of 1, BUN 11, creatinine 0.7, estimated GFR was 84 mL per minute. Her glucose was 88, calcium was 8.6. Total bilirubin, AST, ALT, alkaline phosphatase are elevated. Total protein was 5.4, albumin 2.5. Her white cell count was 5900, hemoglobin 9.7, hematocrit was 28, MCV was 102 and platelet count of 367,000. DISCHARGE MEDICATIONS: The patient was discharged home to continue on aspirin 81 mg once a day, calcium carbonate with vitamin D3 one tablet daily, cholecalciferol for vitamin D3 2000 units p.o. daily, levothyroxine sodium 137 mcg daily, magnesium oxide 400 mg once a day, potassium chloride 10 mEq 3 times a day, sertraline 100 mg daily and simvastatin for Zocor 10 mg at bedtime. She was also discharged. As Keflex was ineffective for her last time, I switched her to Bactrim-DS 1 tablet twice a day for 7 days. FINAL DISCHARGE DIAGNOSES: Cellulitis of the right upper extremity with possible olecranon bursitis versus an abscess, hypothyroidism, hyperlipidemia, nephrolithiasis and osteoarthritis. VIRGILIO MIRZA MD DR: Bonnie JOB#: [id number] / [id number]
== END 2018-08-12 14:10 | disposition home or self-care (01) | DRG 558 ==
LOC: ER 14:13 → 1 SOUTH 17:11
PROVIDERS: ADMIT Internal Medicine; ATTEND Internal Medicine
DX: M70.21 Olecranon bursitis, right elbow (principal); L03.113 Cellulitis of right upper limb; L02.413 Cutaneous abscess of right upper limb; D50.0 Iron deficiency anemia secondary to blood loss (chronic); E03.9 Hypothyroidism, unspecified; E11.9 Type 2 diabetes mellitus without complications; E78.00 Pure hypercholesterolemia, unspecified; E78.5 Hyperlipidemia, unspecified; K21.9 Gastro-esophageal reflux disease without esophagitis; M19.90 Unspecified osteoarthritis, unspecified site; F41.9 Anxiety disorder, unspecified; N30.90 Cystitis, unspecified without hematuria; Z96.651 Presence of right artificial knee joint; Z90.710 Acquired absence of both cervix and uterus; Z87.442 Personal history of urinary calculi; Z79.899 Other long term (current) drug therapy; Y93.89 Activity, other specified; Z95.0 Presence of cardiac pacemaker; Z88.8 Allergy status to other drugs, medicaments and biological substances
CPT/HCPCS: 36415; 70450; 76881; 76882; 80048; 80053; 80202; 82274; 83605; 85007; 85014; 85018; 85025; 85027; 87040; 90471; 90756; 96361; 96365; 96366; J3370; J7040; 99285-25; J7030; Q2035

== ENCOUNTER → 2018-08-13 | Outpatient (CLI) | payer OTHER ==
[2018-08-12 10:35] VITALS: BP 134/83
[~2018-08-13] MED LIST changes: +CALC-157 PO; +CHOL2000 PO; +MAGN250T2 PO; +POTA10TA10 PO; +SULF1TAB23 PO
--- NOTE | 2018-08-13 12:45 | RAD ---
EXAM: Abdomen sonogram. HISTORY: Elevated liver function laboratory values. TECHNIQUE: Sonographic imaging of the abdomen was performed. COMPARISON: CT dated 10/14/2009. FINDINGS: The liver is normal in size. No focal hepatic lesion is seen. The common bile duct is normal in caliber. The gallbladder, kidneys, pancreas, spleen, aorta and inferior vena cava are unremarkable. IMPRESSION: Unremarkable abdomen sonogram. Electronically signed by: Oralia Levine MD (08/13/2018 12:41 PM) [place] [id number]
== END | disposition home or self-care (01) ==
LOC: US 09:57
PROVIDERS: ATTEND Internal Medicine
DX: R94.5 Abnormal results of liver function studies (principal)
CPT/HCPCS: 76700

== ENCOUNTER 2021-03-02 20:41 | Emergency (ER) | payer MEDICARE, OTHER ==
[~2021-03-02] VITALS: Ht 170.2 cm; Wt 95.2 kg
[~2021-03-02 20:41] MED LIST changes: +SERT-269 PO; -SERT100T8 PO
--- NOTE | 2021-03-02 20:48 | PHYS DOC ---
Past History Past Medical History: Anemia, Anxiety, GERD, High Cholesterol, Hypothyroid, Kidney Stones, Other Past Surgical History: Hysterectomy, Knee Replacement, Tonsillectomy Smoking: Non-smoker Alcohol Use: Occasionally Drug Use: None General Adult HPI: HPI: "... I was on a step ladder... up maybe 2 -3 steps... but I was taking the curtains down to wash them... And I encouraged over too far and I fell... Banged my head.. I did get knocked out... or any thing .. but every one said get checked out..." Patient is a 65 year old female who presents with hx of fall off the ladder and head injury. Patient has a contusion to the side of her head. No bleeding. Patient denies any loss of consciousness. Patient denies any neck pain. Patient denies any vision changes. Patient denies any dizziness. Patient complains only minor contusion to the side of the head. Patient normally healthy. Not on any anticoagulants. Normally follows with Dr. Churchill. Patient has been amatory without problems since the fall. No recent travel. No immunosuppression. Review of Systems: Review of Systems: Constitutional: Denies fever or chills Eyes: Denies change in visual acuity HENT: Complains of head injury and fall from ladder Respiratory: Denies cough or shortness of breath Cardiovascular: Denies chest pain or edema GI: Denies abdominal pain, nausea, vomiting, bloody stools or diarrhea : Denies dysuria Musculoskeletal: Denies back pain or joint pain Integument: Denies rash Neurologic: Denies headache, focal weakness or sensory changes Endocrine: Denies polyuria or polydipsia Lymphatic: Denies swollen glands Psychiatric: Denies depression or anxiety Family History: Family History: Noncontributory to presentation Current Medications: Current Meds: See nursing for home meds Allergies: Allergies: Allergies Coded Allergies Type Severity Reaction Last Updated Verified acetaminophen Allergy Intermediate 08/09/18 Yes propoxyphene napsylate Allergy Intermediate 08/09/18 Yes Physical Exam: PE: Constitutional: Well developed, well nourished, no acute distress, non-toxic appearance. [] HENT: Normocephalic, small contusion to scalp, bilateral external ears normal, oropharynx moist, no oral exudates, nose normal. [] Eyes: PERRLA, EOMI, conjunctiva normal, no discharge. [] Neck: Normal range of motion, no tenderness, supple, no stridor. Mild midline tenderness Cardiovascular:Heart rate regular rhythm, no murmur [] Lungs & Thorax: Bilateral breath sounds equal apex auscultation [] Abdomen: Bowel sounds normal, soft, no tenderness, no masses, no pulsatile masses. [] Skin: Warm, dry, no erythema, no rash. [] Back: No tenderness, no CVA tenderness. [] Extremities: No tenderness, no cyanosis, no clubbing, ROM intact, no edema. [] Neurologic: Alert and oriented X 3, normal motor function, normal sensory function, no focal deficits noted. [] DTRs +2 patella and brachial. Amatory without problems. No drift. Right-hand dominant Psychologic: Affect embarrassed but normal, judgement normal, mood normal. [] EKG: EKG: [] Radiology/Procedures: Radiology/Procedures: [][address] [place] [id number] IMAGING REPORT Signed PATIENT: NAT GARDNER ACCOUNT: [id number] : 1955 LOCATION: ER AGE: 65 SEX: F EXAM STATUS: PRE ER ORD. PHYSICIAN: PONCE SANTOS MD REASON: fall off ladder PROCEDURE: CT HEAD AND CERVICAL SPINE WO Exam: CT head and cervical spine INDICATION: Fall off ladder TECHNIQUE: Sequential axial images through the head and cervical spine were obtained without the administration of IV contrast. Comparisons: None FINDINGS: Head: No focal parenchymal lesion or hemorrhage is identified. There is no midline shift or sulcal effacement. No acute vascular territory infarction is identified. Nash-white distinction is preserved. The ventricular system is within normal limits without compression hydrocephalus. The basal cisterns are well maintained. The visualized portions of the paranasal sinuses and mastoid air cells are well- pneumatized. No acute fractures. Cervical spine: Vertebral body heights and alignment are well-maintained. Fracture to the cervical spine is not identified. Mild spondylotic change in cervical spine with degenerative disc disease greatest at C3-C4 C5-C6 and C6-C7. Mild bilateral facet arthropathy is noted in the cervical spine. Visualized paraspinal soft tissues are unremarkable. IMPRESSION: 1. No acute intracranial abnormality. 2. Negative CT C-spine for acute traumatic injury. Exposure: One or more of the following in the visualized dose reduction techniques were utilized for this examination: 1. Automated exposure control 2. Adjustment of the MA and/or KV according to patient size Use of iterative of reconstructive technique Electronically signed by: Elyse Moser MD (03/02/2021 9:36 PM) [facility] DICTATED AND SIGNED BY: ELYSE MOSER MD DATE: 03/02/212131 CC: PONCE SANTOS MD; MAGGIE CHURCHILL ~MTH0 0 Heart Score: C/O Chest Pain: N/A Risk Factors: Risk Factors: DM, Current or recent (<one month) smoker, HTN, HLP, family history of CAD, obesity. Risk Scores: Score 0 - 3: 2.5% MACE over next 6 weeks - Discharge Home Score 4 - 6: 20.3% MACE over next 6 weeks - Admit for Clinical Observation Score 7 - 10: 72.7% MACE over next 6 weeks - Early Invasive Strategies Course & Med Decision Making: Course & Med Decision Making Pertinent Labs and Imaging studies reviewed. (See chart for details) Ice packs as needed.. Head injury precautions. Take ibuprofen as needed for discomfort. You do have abrasion to posterior scalp. Clean this area with peroxide 4 times a day. And apply antibiotic ointment 4 times a day,. Must follow-up primary care. Return if any concerns. If you vomit more than twice after going home he needs reexam. Stay with someone that can check on you tonight Impression: 1. Head injury 2. Abrasion [] Dragon Disclaimer: Julien Disclaimer: This electronic medical record was generated, in whole or in part, using a voice recognition dictation system. Departure Departure: Referrals: MAGGIE CHURCHILL (PCP) Julien Disclaimer This chart was dictated in whole or in part using Voice Recognition software in a busy, high-work load, and often noisy Emergency Department environment. It may contain unintended and wholly unrecognized errors or omissions. PONCE SANTOS MD Mar 02, 2021 20:48
[2021-03-02] MEDS ORDERED: DIPH,PERTUSS(ACELL),TET VAC/PF 0.5 ML SYRINGE. VAX IM ONE (21:15)
--- NOTE | 2021-03-02 21:39 | RAD ---
Exam: CT head and cervical spine INDICATION: Fall off ladder TECHNIQUE: Sequential axial images through the head and cervical spine were obtained without the admi nistration of IV contrast. Comparisons: None FINDINGS: Head: No focal parenchymal lesion or hemorrhage is identified. There is no midline shift or sulcal effaceme nt. No acute vascular territory infarction is identified. Nash-white distinction is preserved. The ventricular system is within normal limits without compression hydrocephalus. The basal cisterns are well maintained. The visualized portions of the paranasal sinuses and mastoid air cells are well-pneumatized. No acute fractures. Cervical spine: Vertebral body heights and alignment are well-maintained. Fracture to the cervical spine is not identified. Mild spondylotic change in cervical spine with degenerative disc disease greatest at C3-C4 C5-C6 and C6-C7. Mild bilateral facet arthropathy is noted in the cervical spine. Visualized paraspinal soft tissues are unremarkable. IMPRESSION: 1. No acute intracranial abnormality. 2. Negative CT C-spine for acute traumatic injury. Exposure: One or more of the following in the visualized dose reduction techniques were utilized for this examination: 1. Automated exposure control 2. Adjustment of the MA and/or KV according to patient size Use of iterative of reconstructive technique Electronically signed by: Elyse Ornelas MD (03/02/2021 9:36 PM) [facility]
[2021-03-02 22:12] VITALS: BP 130/66
== END 2021-03-02 22:30 | disposition home health service (06) ==
LOC: ER 20:41
DX: S00.03XA Contusion of scalp, initial encounter (principal); F41.9 Anxiety disorder, unspecified; K21.9 Gastro-esophageal reflux disease without esophagitis; E78.00 Pure hypercholesterolemia, unspecified; E03.9 Hypothyroidism, unspecified; Z87.442 Personal history of urinary calculi; Z86.2 Personal history of diseases of the blood and blood-forming organs and certain disorders involving the immune mechanism; Z88.8 Allergy status to other drugs, medicaments and biological substances; W11.XXXA Fall on and from ladder, initial encounter; Y93.89 Activity, other specified; Y92.89 Other specified places as the place of occurrence of the external cause; Y99.8 Other external cause status
CPT/HCPCS: 70450; 72125; 90471; 90715; 99285-25